=== PATIENT | male | born 1965 | race Caucasian/White ===

== ENCOUNTER 2018-07-05 10:47 | Emergency (ER) | payer MEDICAID, OTHER ==
[2018-07-05] MEDS ORDERED: Sodium Chloride 0.9% 10 ML Syringe FLUSH PRN (11:06)
[2018-07-05] MEDS ORDERED: Albuterol/Ipratropium 3.0-0.5 MG/3 ML Neb Soln NEB ONE (11:06)
[2018-07-05] MEDS ORDERED: Dexamethasone 4 MG/ML SDV IVPUSH ONE (11:06)
--- NOTE | 2018-07-05 11:14 | EDM.PDOC ---
ED HPI GENERAL MEDICAL PROBLEM - General Chief Complaint: Cardiovascular Problem Stated Complaint: SOB CHEST PAIN Time Seen by Provider: 07/05/18 11:09 Source of Information: Reports: Patient History Limitations: Reports: No Limitations - History of Present Illness INITIAL COMMENTS - FREE TEXT/NARRATIVE: Presents with 1 week of cough and sinus pressure. Had a sore throat 3 days prior. Was prescribed zithromax initially which was changed to levaquin because symptoms did not improve. Also completed a course of prednisone yesterday. Complains of persistent symptoms and now exertional chest pain and shortness of breath x 2 days. No prior h/o CAD. Does have a history of asthma. Of note, patient was cleaning out a shed @2 weeks ago and was exposed to rat and mice feces. Duration: Week(s): (1) Location: Reports: Chest Severity: Moderate Context: Reports: Activity Associated Symptoms: Reports: Chest Pain, Cough, Shortness of Breath - Related Data Allergies Allergy/AdvReac Type Severity Reaction Status Date / Time amoxicillin [Amoxicillin] Allergy Anaphylactic Verified 07/05/18 11:10 Shock Penicillins Allergy Hives Verified 07/05/18 11:10 Home Meds: Home Meds Omeprazole 20 mg PO ACBRK 05/16/14 [History] Albuterol [Ventolin HFA] 2 puff INH Q4H PRN #1 inhaler 07/05/18 [Rx] Ascorbic Acid [Vitamin C] 1 tab PO DAILY 07/05/18 [History] predniSONE [Prednisone] See Taper PO DAILY 12 Days #39 tablet 07/05/18 [Rx] Past Medical History Cardiovascular History: Reports: High Cholesterol. Denies: CAD, [place] Respiratory History: Reports: Asthma, Sleep Apnea Gastrointestinal History: Reports: GERD Social & Family History - Tobacco Use Smoking Status *Q: Current Every Day Smoker Tobacco Use Within Last Twelve Months: Cigarettes ED ROS GENERAL - Review of Systems Review Of Systems: See Below Constitutional: Reports: No Symptoms HEENT: Reports: Other (sinus pressure) Respiratory: Reports: Shortness of Breath, Cough Cardiovascular: Reports: Chest Pain, Dyspnea on Exertion Endocrine: Reports: No Symptoms GI/Abdominal: Reports: No Symptoms : Reports: No Symptoms Musculoskeletal: Reports: No Symptoms Skin: Reports: No Symptoms Neurological: Reports: No Symptoms Psychiatric: Reports: No Symptoms Hematologic/Lymphatic: Reports: No Symptoms Immunologic: Reports: No Symptoms ED EXAM, GENERAL - Physical Exam Exam: See Below Exam Limited By: No Limitations General Appearance: Alert, WD/WN, No Apparent Distress Ears: Normal External Exam Nose: Normal Inspection Throat/Mouth: No Airway Compromise Head: Atraumatic, Normocephalic Neck: Supple, Full Range of Motion Respiratory/Chest: No Respiratory Distress, Decreased Breath Sounds, Wheezing Cardiovascular: Regular Rate, Rhythm, No Murmur Back Exam: Full Range of Motion Extremities: Normal Range of Motion, Pedal Edema (trace pitting) Neurological: Alert, Normal Cognition, No Motor/Sensory Deficits Psychiatric: Normal Affect, Normal Mood Skin Exam: Warm, Dry, Intact EKG INTERPRETATION EKG Date: 07/05/18 Time: 11:08 Rhythm: NSR Rate (Beats/Min): 67 [place]: Normal P-Wave: Present QRS: Normal ST-T: Normal QT: Normal Course - Vital Signs Last Recorded V/S: Last Vital Signs Temp 36.8 C 07/05/18 11:00 Pulse 78 07/05/18 13:40 Resp 18 07/05/18 11:00 BP 159/82 H 07/05/18 11:00 Pulse Ox 98 07/05/18 13:40 - Orders/Labs/Meds Orders: Active Orders 24 hr Category Date Time Status CXR [Chest 2V] [CR] Stat Exams 07/05/18 11:03 Taken Chest w Cont [CT] Stat Exams 07/05/18 12:28 Taken CULTURE BLOOD [BC] Urgent Lab 07/05/18 11:35 Received CULTURE BLOOD [BC] Urgent Lab 07/05/18 11:45 Received HANTAVIRUS ANTIBODIES, ALEXEI Routine Lab 07/05/18 11:35 Received Sodium Chloride 0.9% [Saline Flush] Med 07/05/18 11:06 Active 10 ml FLUSH ASDIRECTED PRN Blood Culture x2 Reflex Set [OM.PC] Urgent Oth 07/05/18 11:04 Ordered Saline Lock Insert [OM.PC] Routine Oth 07/05/18 11:06 Ordered EKG 12 Lead [EK] Stat Ther 07/05/18 11:03 Ordered Medication Orders Sodium Chloride (Saline Flush) 10 ml FLUSH ASDIRECTED PRN PRN Reason: Keep Vein Open Last Admin: 07/05/18 11:35 Dose: 10 ml Labs: Laboratory Tests 07/05/18 07/05/1807/05/18 Range/Units 11:35 11:35 11:35 WBC 18.2 H (4.5-12.0) X10-3/uL RBC 5.05 (4.30-5.75) x10(6)uL Hgb 15.4 (11.5-15.5) g/dL Hct 43.6 (30.0-51.3) % MCV 86.4 (80-96) fL MCH 30.5 (27.7-33.6) pg MCHC 35.3 (32.2-35.4) g/dL RDW 12.8 (11.5-15.5) % Plt Count 223 (125-369) X10(3)uL MPV 8.2 (7.4-10.4) fL Add Manual Diff Yes Neutrophils % (Manual) 82 (46-82) % Lymphocytes % (Manual) 14 (13-37) % Monocytes % (Manual) 4 (4-12) % PT 9.7 (8.7-11.1) INR 1.00 (0.89-1.13) D-Dimer, Quantitative (0.0-0.59) mg/LFEU POC VBG pH (7.31-7.41) POC VBG pCO2 (41-51) mmHG POC VBG HCO3 (23-28) mmol/L POC VBG Total CO2 (24-29) mmol/L POC VBG Base Excess (-2-3) mmol/L Sodium 137 (135-145) mmol/L Potassium 3.6 (3.5-5.3) mmol/L Chloride 102 (100-110) mmol/L Carbon Dioxide 26 (21-32) mmol/L BUN 18 (7-18) mg/dL Creatinine 1.0 (0.70-1.30) mg/dL Est Cr Clr Drug Dosing TNP Estimated GFR (MDRD) > 60 (>60) BUN/Creatinine Ratio 18.0 (9-20) Glucose 117 H (80-116) mg/dL Lactic Acid (0.4-2.2) mmol/L Calcium 9.4 (8.6-10.2) mg/dL Total Bilirubin 0.3 (0.1-1.3) mg/dL AST 14 (5-25) IU/L ALT 31 (12-36) U/L Alkaline Phosphatase 54 L (56-112) IU/L Troponin I (<0.017-0.056) ng/mL NT-Pro-B Natriuret Pep (<=125) pg/mL Total Protein 7.4 (6.0-8.0) g/dL Albumin 3.4 L (3.5-5.2) g/dL Globulin 4.0 g/dL Albumin/Globulin Ratio 0.9 07/05/18 07/05/18 07/05/18 Range/Units 11:35 11:35 11:35 WBC (4.5-12.0) X10-3/uL RBC (4.30-5.75) x10(6)uL Hgb (11.5-15.5) g/dL Hct (30.0-51.3) % MCV (80-96) fL MCH (27.7-33.6) pg MCHC (32.2-35.4) g/dL RDW (11.5-15.5) % Plt Count (125-369) X10(3)uL MPV (7.4-10.4) fL Add Manual Diff Neutrophils % (Manual) (46-82) % Lymphocytes % (Manual) (13-37) % Monocytes % (Manual) (4-12) % PT (8.7-11.1) INR (0.89-1.13) D-Dimer, Quantitative 0.34 (0.0-0.59) mg/LFEU POC VBG pH (7.31-7.41) POC VBG pCO2 (41-51) mmHG POC VBG HCO3 (23-28) mmol/L POC VBG Total CO2 (24-29) mmol/L POC VBG Base Excess (-2-3) mmol/L Sodium (135-145) mmol/L Potassium (3.5-5.3) mmol/L Chloride (100-110) mmol/L Carbon Dioxide (21-32) mmol/L BUN (7-18) mg/dL Creatinine (0.70-1.30) mg/dL Est Cr Clr Drug Dosing Estimated GFR (MDRD) (>60) BUN/Creatinine Ratio (9-20) Glucose (80-116) mg/dL Lactic Acid 1.6 (0.4-2.2) mmol/L Calcium (8.6-10.2) mg/dL Total Bilirubin (0.1-1.3) mg/dL AST (5-25) IU/L ALT (12-36) U/L Alkaline Phosphatase (56-112) IU/L Troponin I < 0.017 L (<0.017-0.056) ng/mL NT-Pro-B Natriuret Pep 160 H (<=125) pg/mL Total Protein (6.0-8.0) g/dL Albumin (3.5-5.2) g/dL Globulin g/dL Albumin/Globulin Ratio 07/05/18 07/05/18 Range/Units 11:35 14:30 WBC (4.5-12.0) X10-3/uL RBC (4.30-5.75) x10(6)uL Hgb (11.5-15.5) g/dL Hct (30.0-51.3) % MCV (80-96) fL MCH (27.7-33.6) pg MCHC (32.2-35.4) g/dL RDW (11.5-15.5) % Plt Count (125-369) X10(3)uL MPV (7.4-10.4) fL Add Manual Diff Neutrophils % (Manual) (46-82) % Lymphocytes % (Manual) (13-37) % Monocytes % (Manual) (4-12) % PT (8.7-11.1) INR (0.89-1.13) D-Dimer, Quantitative (0.0-0.59) mg/LFEU POC VBG pH 7.45 H (7.31-7.41) POC VBG pCO2 38.6 L (41-51) mmHG POC VBG HCO3 26.8 (23-28) mmol/L POC VBG Total CO2 28 (24-29) mmol/L POC VBG Base Excess 3 (-2-3) mmol/L Sodium (135-145) mmol/L Potassium (3.5-5.3) mmol/L Chloride (100-110) mmol/L Carbon Dioxide (21-32) mmol/L BUN (7-18) mg/dL Creatinine (0.70-1.30) mg/dL Est Cr Clr Drug Dosing Estimated GFR (MDRD) (>60) BUN/Creatinine Ratio (9-20) Glucose (80-116) mg/dL Lactic Acid (0.4-2.2) mmol/L Calcium (8.6-10.2) mg/dL Total Bilirubin (0.1-1.3) mg/dL AST (5-25) IU/L ALT (12-36) U/L Alkaline Phosphatase (56-112) IU/L Troponin I < 0.017 L (<0.017-0.056) ng/mL NT-Pro-B Natriuret Pep (<=125) pg/mL Total Protein (6.0-8.0) g/dL Albumin (3.5-5.2) g/dL Globulin g/dL Albumin/Globulin Ratio Meds: Medications Generic Name Dose Route Start Last Admin Trade Name Freq PRN Reason Stop Dose Admin Sodium Chloride 10 ml 07/05/18 11:06 07/05/18 11:35 Saline Flush FLUSH 10 ml ASDIRECTED PRN Administration Keep Vein Open Discontinued Medications Generic Name Dose Route Start Last Admin Trade Name Freq PRN Reason Stop Dose Admin Albuterol 2.5 mg 07/05/18 13:11 07/05/18 13:20 Proventil Neb Soln NEB 07/05/18 13:12 2.5 mg ONETIME ONE Administration Albuterol/Ipratropium 3 ml 07/05/18 11:06 07/05/18 11:16 Duoneb 3.0-0.5 Mg/3 Ml NEB 07/05/18 11:07 3 ml ONETIME ONE Administration Dexamethasone 10 mg 07/05/18 11:06 07/05/18 11:35 Dexamethasone IVPUSH 07/05/18 11:07 10 mg ONETIME ONE Administration Magnesium Sulfate 2 gm/ Premix 50 mls @ 150 mls/hr 07/05/18 13:11 07/05/18 13 :29 IV 07/05/18 13:30 150 mls/hr ONETIME ONE Administration Iopamidol 100 ml 07/05/18 12:54 07/05/18 13:05 Isovue-370 (76%) IV 07/05/18 12:55 81 ml . DIRECTED ONE Administration - Radiology Interpretation Free Text/Narrative:: CXR: NAD CT Chest w/ IV contrast: No acute intrathoracic abnormalities. - Re-Assessments/Exams Free Text/Narrative Re-Assessment/Exam: 07/05/18 14:54 Symptoms improved. Aeration has significantly improved, still slight expiratory wheeze on re-examination. Departure - Departure Time of Disposition: 14:57 Disposition: Home, Self-Care 01 Condition: Good Clinical Impression: Asthma exacerbation Qualifiers: Asthma severity: moderate Asthma persistence: persistent Qualified Code(s): J45.41 - Moderate persistent asthma with (acute) exacerbation Prescriptions: Albuterol [Ventolin HFA] 2 puff INH Q4H PRN #1 inhaler PRN Reason: Shortness Of Breath predniSONE [Prednisone] See Taper PO DAILY 12 Days #39 tablet Instructions: How to Use a Metered Dose Inhaler, Asthma, Adult, [id number] Referrals: Serafin Max MD [Primary Care Provider] - Forms: ED Department Discharge Additional Instructions: Fill prescriptions for Albuterol and Prednisone and take as directed. Follow up with your primary physician in 2-3 days. Return to the ER if symptoms worsen. - My Orders Last 24 Hours: My Active Orders 07/05/18 11:03 CXR [Chest 2V] [CR] Stat EKG 12 Lead [EK] Stat 07/05/18 11:04 Blood Culture x2 Reflex Set [OM.PC] Urgent 07/05/18 11:06 Sodium Chloride 0.9% [Saline Flush] 10 ml FLUSH ASDIRECTED PRN Saline Lock Insert [OM.PC] Routine 07/05/18 11:35 CULTURE BLOOD [BC] Urgent HANTAVIRUS ANTIBODIES, ALEXEI Routine 07/05/18 11:45 CULTURE BLOOD [BC] Urgent 07/05/18 12:28 Chest w Cont [CT] Stat - Assessment/Plan Last 24 Hours: My Active Orders 07/05/18 11:03 CXR [Chest 2V] [CR] Stat EKG 12 Lead [EK] Stat 07/05/18 11:04 Blood Culture x2 Reflex Set [OM.PC] Urgent 07/05/18 11:06 Sodium Chloride 0.9% [Saline Flush] 10 ml FLUSH ASDIRECTED PRN Saline Lock Insert [OM.PC] Routine 07/05/18 11:35 CULTURE BLOOD [BC] Urgent HANTAVIRUS ANTIBODIES, ALEXEI Routine 07/05/18 11:45 CULTURE BLOOD [BC] Urgent 07/05/18 12:28 Chest w Cont [CT] Stat
[2018-07-05] MEDS ORDERED: Iopamidol 755 Mg/ML 100 ML Bottle IV ONE (12:54)
[2018-07-05] MEDS ORDERED: Magnesium Sulfate/Water 2 GM in Premix Bag 1 BAG IV ONE (13:11)
[2018-07-05] MEDS ORDERED: Albuterol 0.083% 2.5 MG/3 ML Neb Soln NEB ONE (13:11)
[2018-07-05 15:01] VITALS: BP 132/73
--- NOTE | 2018-07-06 09:43 | CR ---
INDICATION: Cough. Chest pain. CHEST, PA AND LATERAL VIEWS: FINDINGS: By x-ray, the lungs are clear. There is a benign appearing nodule in the anterior aspect of the right upper lung on a subsequently CT scan chest. By x-ray, the cardiac and mediastinal contours look normal. There is no CHF. The patient is of larger body habitus. There is some degenerative end plate change and spurring that is identified throughout the thoracic spine. IMPRESSION: There is a circumscribed nodule that is identified anteriorly within the right upper lobe, better demonstrated on a subsequent CT scan chest. This nodule is felt to be benign. There is otherwise no acute pneumonia or CHF. MTDD
== END 2018-07-05 15:14 | disposition home or self-care (01) ==
LOC: FB.ED 10:47
DX: J45.41 Moderate persistent asthma with (acute) exacerbation (principal); Z88.0 Allergy status to penicillin; Z88.1 Allergy status to other antibiotic agents; F17.210 Nicotine dependence, cigarettes, uncomplicated
CPT/HCPCS: 36415; 71046; 71260; 80053; 82803; 83605; 83880; 84484; 85025; 85379; 85610; 86790; 87040; 87804; 93005; 94640; 96365; 96375; 99285; J1100; J3475; J7050; Q9967; 99284; J7620-GY

== ENCOUNTER 2018-11-10 19:18 | Emergency (ER) | payer BC, OTHER ==
[2018-11-10] MEDS ORDERED: traMADol 50 MG Tab PO ONE (19:19)
[2018-11-10] MEDS ORDERED: Ketorolac 60 MG/2 ML SDV IM ONE (20:51)
--- NOTE | 2018-11-10 21:07 | EDM.PDOC ---
ED HPI GENERAL MEDICAL PROBLEM - General Chief Complaint: Lower Extremity Injury/Pain Stated Complaint: LEFT THIGH PAIN Time Seen by Provider: 11/10/18 20:20 Source of Information: Reports: Patient History Limitations: Reports: No Limitations - History of Present Illness INITIAL COMMENTS - FREE TEXT/NARRATIVE: c/o L hamstring pain pt has dogs by a child gate so that they can eat separately, as he was stepping over the gate his L foot caught on the gate, he did the splits with legs going in opposite directions, the gate fell to the floor, he felt a rip in his mid thigh posteriorly with pain radiating into his pelvis he comes to ED on crutches did not take meds at home is a student, not working Left thigh Pain Score (Numeric/FACES): 10 - Related Data Allergies Allergy/AdvReac Type Severity Reaction Status Date / Time amoxicillin [Amoxicillin] Allergy Anaphylactic Verified 11/10/18 19:31 Shock Penicillins Allergy Hives Verified 11/10/18 19:31 Home Meds: Home Meds Omeprazole 20 mg PO BEDTIME 05/16/14 [History] Albuterol [Ventolin HFA] 2 puff INH Q4H PRN #1 inhaler 07/05/18 [Rx] Past Medical History Cardiovascular History: Reports: High Cholesterol Respiratory History: Reports: Asthma, Sleep Apnea Gastrointestinal History: Reports: GERD Endocrine/Metabolic History: Reports: Other (See Below) Other Endocrine/Metabolic History: stated panc. malfunctioned a few years ago but is not working well Social & Family History - Family History Family Medical History: Noncontributory - Tobacco Use Smoking Status *Q: Current Every Day Smoker Years of Tobacco use: 40 Packs/Tins Daily: 1 Used Tobacco, but Quit: No - Caffeine Use Caffeine Use: Reports: Coffee, Energy Drinks, Soda - Recreational Drug Use Recreational Drug Use: No Review of Systems - Review of Systems Review Of Systems: See Below Constitutional: Reports: No Symptoms Eyes: Reports: No Symptoms Ears: Reports: No Symptoms Nose: Reports: No Symptoms Mouth/Throat: Reports: No Symptoms Respiratory: Reports: No Symptoms Cardiovascular: Reports: No Symptoms GI/Abdominal: Reports: No Symptoms Genitourinary: Reports: No Symptoms Musculoskeletal: Reports: Leg Pain Skin: Reports: No Symptoms Neurological: Reports: No Symptoms Psychiatric: Reports: No Symptoms ED EXAM, GENERAL - Physical Exam Exam: See Below Exam Limited By: No Limitations General Appearance: Alert, WD/WN, Mild Distress Back Exam: Normal Inspection, Other (L spine NT). No: Muscle Spasm Extremities: Other (lying supine and a little towards the R side which he says is the most comfortable position, he was able to roll further to the R without difficulty to allow exam of the posterior pelvis, does have 1-2+ tender over the posterior mid thigh without spasm with tenderness extending up to the insertion of the hamstring on the posterior pelvis, minimal tender along inguinal line, NT at L greater trochanter and L SI joint ) Neurological: Alert, Oriented, No Motor/Sensory Deficits Psychiatric: Normal Affect, Normal Mood Skin Exam: Warm, Dry, Intact, Normal Color, No Rash Lymphatic: No Adenopathy Course - Vital Signs Last Recorded V/S: Last Vital Signs Temp 36.8 C 11/10/18 21:19 Pulse 77 11/10/18 21:19 Resp 18 11/10/18 21:19 BP 143/66 H 11/10/18 21:19 Pulse Ox 97 11/10/18 21:19 - Orders/Labs/Meds Orders: Active Orders 24 hr Category Date Time Status Pelvis 1V or 2V [CR] Stat Exams 11/10/18 20:51 Taken Meds: Medications Discontinued Medications Generic Name Dose Route Start Last Admin Trade Name Erika PRN Reason Stop Dose Admin Ketorolac Tromethamine 60 mg 11/10/18 20:51 11/10/18 20:57 Toradol IM 11/10/18 20:52 60 mg ONETIME ONE Administration - Re-Assessments/Exams Free Text/Narrative Re-Assessment/Exam: 11/10/18 21:55 XR pelvis 1v with no chip fx pt with c/o spasm if he turns the wrong way has classes at [employer] tomorrow and in 5d, did not think he would be able to drive, wants a note given a new set of crutches agrees to follow d/c instructions, including using ice Departure - Departure Time of Disposition: 21:56 Disposition: DC[facility] 05 Condition: Good Clinical Impression: Hamstring muscle strain Qualifiers: Laterality: left Hamstring tendon rupture Qualifiers: Laterality: left - Discharge Information *PRESCRIPTION DRUG MONITORING PROGRAM REVIEWED*: Not Applicable *COPY OF PRESCRIPTION DRUG MONITORING REPORT IN PATIENT WOOD: Not Applicable Instructions: Hamstring Strain Referrals: Serafin Max MD [Primary Care Provider] - Forms: ED Department Discharge, ED Return to Work/School Form Additional Instructions: For pain and inflammation, take ibuprofen 200 mg 4 tabs and acetaminophen 500 mg 2 tabs 3 times a day for 2 weeks, longer if needed. For pain, take tramadol 50 mg 1 tab every 6-8 hours as needed. No alcohol. Use ice for 15 minutes 4 times a day for 2 days, then switch to heat. Use crutches when out of bed until cleared by your physician. See your in 2 days if not feeling better. Otherwise, see your physician in 5 days. Avoid falling or reinjury. - My Orders Last 24 Hours: My Active Orders 11/10/18 20:51 Pelvis 1V or 2V [CR] Stat - Assessment/Plan Last 24 Hours: My Active Orders 11/10/18 20:51 Pelvis 1V or 2V [CR] Stat
[2018-11-10 21:25] VITALS: BP 143/66
--- NOTE | 2018-11-12 07:54 | CR ---
INDICATION: Tripped over baby gait. Did leg splits and felt a pop. Ruptured hamstring, question avulsion chip fracture fragment. PELVIS ONE VIEW: There is a clip in the right lower quadrant which could be on the basis of appendectomy. Bone density of the pelvis and femurs appear to be normal without a definite fracture, dislocation, or other definite bone or joint abnormality. There is a small spur off the lesser trochanteric area on the right, which likely is due to a tug lesion and likely is not acute. Sacroiliac joints appear to be intact. IMPRESSION: No definite acute fracture or dislocation. MTDD
== END 2018-11-10 22:18 | disposition home or self-care (01) ==
LOC: FB.ED 19:18
DX: S76.312A Strain of muscle, fascia and tendon of the posterior muscle group at thigh level, left thigh, initial encounter (principal); J45.909 Unspecified asthma, uncomplicated; K21.9 Gastro-esophageal reflux disease without esophagitis; F17.210 Nicotine dependence, cigarettes, uncomplicated; W23.0XXA Caught, crushed, jammed, or pinched between moving objects, initial encounter; Z88.0 Allergy status to penicillin; Z79.899 Other long term (current) drug therapy; Z88.1 Allergy status to other antibiotic agents
CPT/HCPCS: 72170; 96372; 99283; J1885; A9270-GY

== ENCOUNTER 2022-09-27 21:16 | Emergency (ER) | payer SELFPAY ==
[2022-09-27] MEDS ORDERED: Acetaminophen/oxyCODONE 325-5 MG Tab PO ONE (21:17)
[2022-09-27] MEDS ORDERED: Sodium Chloride 0.9% 10 ML Syringe FLUSH PRN (22:23)
[2022-09-27] MEDS ORDERED: Sodium Chloride 0.9% 1,000 ML IV ONE (22:23)
[2022-09-27] MEDS ORDERED: Ondansetron 4 MG/2 ML SDV IVPUSH ONE (22:23)
[2022-09-27] MEDS ORDERED: Morphine 4 MG/ML VIAL IVPUSH ONE (22:23)
[2022-09-27 22:57] LABS: ESTIMATED GFR 89 mL/min (>60)
[2022-09-27] MEDS ORDERED: Iopamidol 755 Mg/ML 100 ML Bottle IV ONE (23:13)
[2022-09-28] MEDS ORDERED: HYDROmorphone 2 MG/ML SDV IVPUSH ONE (00:05)
[2022-09-28 02:05] VITALS: BP 149/86; PULSE 62
== END 2022-09-28 01:30 | disposition home or self-care (01) ==
LOC: FB.ED 21:16
DX: R10.9 Unspecified abdominal pain (principal); M54.6 Pain in thoracic spine; E78.00 Pure hypercholesterolemia, unspecified; K21.9 Gastro-esophageal reflux disease without esophagitis; F17.210 Nicotine dependence, cigarettes, uncomplicated; Z88.0 Allergy status to penicillin; Z88.5 Allergy status to narcotic agent; Z79.899 Other long term (current) drug therapy
CPT/HCPCS: 36415; 71275; 74177; 80053; 81001; 83690; 83735; 84484; 85025; 85379; 86140; 93005; 96361; 96374; 96375; 99284; A9270; J1170; J2270; J2405; J3490; J7030; Q9967

== ENCOUNTER 2024-01-22 22:30 | Emergency (ER) | payer SELFPAY ==
[2024-01-22 22:54] VITALS: BP 177/64; PULSE 78
[2024-01-22] MEDS: Ketorolac 30 MG/ML SDV IM ONE (23:12)
[2024-01-22] MEDS: Ondansetron 4 MG Tab.DIS PO ONE (23:48)
[2024-01-22] MEDS: Acetaminophen/oxyCODONE 325-5 MG Tab PO STA (23:48)
== END 2024-01-23 00:15 | disposition home or self-care (01) ==
LOC: FB.ED 22:30
DX: S20.212A Contusion of left front wall of thorax, initial encounter (principal); J20.9 Acute bronchitis, unspecified; J45.909 Unspecified asthma, uncomplicated; E78.00 Pure hypercholesterolemia, unspecified; K21.9 Gastro-esophageal reflux disease without esophagitis; Z88.1 Allergy status to other antibiotic agents; Z88.0 Allergy status to penicillin; Z88.6 Allergy status to analgesic agent; Z79.899 Other long term (current) drug therapy; Z79.51 Long term (current) use of inhaled steroids; X50.1XXA Overexertion from prolonged static or awkward postures, initial encounter
CPT/HCPCS: 71101; 96372; 99283; A9270; J1885; Q0162

== ENCOUNTER 2024-06-21 05:39 | Emergency (ER) | payer OTHER ==
[2024-06-21 05:58] LABS: BASOPHILS ABSOLUTE AUTO 0.1 x10-3/uL (0.0-0.3); BASOPHILS PERCENT AUTO 0.7 % (0.3-3.8); EOSINOPHILS ABSOLUTE AUTO 0.3 x10-3/uL (0.0-0.6); EOSINOPHILS PERCENT AUTO 2.9 % (0.1-6.8); HEMATOCRIT 38.7 % (38.3-50.1); LYMPHOCYTES ABSOLUTE AUTO 1.8 x10-3/uL (0.5-4.5); LYMPHOCYTES PERCENT AUTO 18.7 % (15.8-45.3); MEAN CORPUSCULAR HEMOGLOBIN 29.8 pg (27.0-33.3); MEAN CORPUSCULAR HGB CONC 33.5 g/dL (28.7-35.3); MEAN CORPUSCULAR VOLUME 88.9 fL (80.8-98.7); MEAN PLATELET VOLUME 7.2 fL (6.7-11.0); MONOCYTES ABSOLUTE AUTO 0.8 x10-3/uL (0.0-1.2); MONOCYTES PERCENT AUTO 8.1 % (5.5-15.2); NEUTROPHILS ABSOLUTE AUTO 6.6 x10-3/uL (1.7-6.9); NEUTROPHILS PERCENT AUTO 69.6 % (40.3-71.8); PLATELET COUNT,PLT 244 x10(3)uL (117-477); RED BLOOD CELL COUNT 4.36 x10(6)uL (3.90-5.90); RED CELL DISTRIBUTION WIDTH 14.1 % (12.4-15.0); WHITE BLOOD CELL COUNT,WBC 9.4 x10-3/uL (3.2-10.1)
[2024-06-21 06:06] LABS: BLOOD UREA NITROGEN,BUN 25 mg/dL (7-18); BUN/CREATININE RATIO 17.9 (9-20); CALCIUM 8.6 mg/dL (8.6-10.2); CARBON DIOXIDE,CO2 29 mmol/L (21-32); CHLORIDE,CL 105 mmol/L (100-110); CREATININE 1.4 mg/dL (0.70-1.30); ESTIMATED GFR 59 mL/min (>60); GLUCOSE RANDOM 107 mg/dL (80-116); SODIUM,NA 142 mmol/L (135-145)
[2024-06-21 06:17] LABS: ALANINE AMINOTRANSFERASE,ALT 30 U/L (12-36); ALBUMIN 3.5 g/dL (3.5-5.2); ALKALINE PHOSPHATASE 52 IU/L (56-112); ASPARTATE AMNIOTRANSFERASE,AST 23 IU/L (5-25); BILIRUBIN TOTAL 0.2 mg/dL (0.1-1.3)
[2024-06-21] MEDS: Metoprolol Tartrate 5 MG/5 ML SDV IVPUSH ONE (06:30)
[2024-06-21] MEDS: Clopidogrel 75 MG Tab PO ONE (06:30)
[2024-06-21] MEDS: Aspirin 325 MG Tab.EC PO ONE (06:30)
[2024-06-21 06:31] VITALS: BP 165/70; PULSE 64
[2024-06-21] MEDS ORDERED: Heparin Sodium 5,000 Units/ML Vial IVPUSH ONE (06:42)
[2024-06-21] MEDS ORDERED: Heparin Sodium/0.45% NaCl 25,000 UNITS/500 ML BAG IV SCH (06:45)
[2024-06-21] MEDS: Heparin Sodium/0.45% NaCl 25,000 UNITS/500 ML BAG IV SCH (07:06)
[2024-06-21] MEDS: Heparin Sodium 5,000 Units/ML Vial IVPUSH ONE (07:06)
== END 2024-06-21 07:28 ==
LOC: FB.ED 05:39
DX: I21.4 Non-ST elevation (NSTEMI) myocardial infarction (principal); I10 Essential (primary) hypertension; E78.00 Pure hypercholesterolemia, unspecified; J45.909 Unspecified asthma, uncomplicated; F17.210 Nicotine dependence, cigarettes, uncomplicated; Z90.49 Acquired absence of other specified parts of digestive tract; Z79.899 Other long term (current) drug therapy; Z79.84 Long term (current) use of oral hypoglycemic drugs; Z88.0 Allergy status to penicillin; Z88.8 Allergy status to other drugs, medicaments and biological substances
CPT/HCPCS: 36415; 71045; 80053; 84484; 85025; 85379; 86140; 93005; 93010; 96365; 96375; 99285; 99285-25; A9270-GY; J1644; J3490

== ENCOUNTER 2025-06-24 17:13 | Emergency (ER) | payer BC, OTHER ==
[2025-06-24] MEDS ORDERED: Acetaminophen/HYDROcodone 325-5 MG Tab PO ONE (17:14)
[2025-06-24 17:52] LABS: GLUCOSE,URINE NORMAL (NORMAL); OCCULT BLOOD,URINE NEGATIVE (NEGATIVE)
[2025-06-24 18:22] LABS: BASOPHILS ABSOLUTE AUTO 0.1 x10-3/uL (0.0-0.3); BASOPHILS PERCENT AUTO 0.8 % (0.3-3.8); EOSINOPHILS ABSOLUTE AUTO 0.3 x10-3/uL (0.0-0.6); EOSINOPHILS PERCENT AUTO 3.1 % (0.1-6.8); LYMPHOCYTES ABSOLUTE AUTO 1.6 x10-3/uL (0.5-4.5); LYMPHOCYTES PERCENT AUTO 15.0 % (15.8-45.3); MEAN PLATELET VOLUME 7.5 fL (6.7-11.0); MONOCYTES ABSOLUTE AUTO 0.8 x10-3/uL (0.0-1.2); MONOCYTES PERCENT AUTO 7.9 % (5.5-15.2); NEUTROPHILS ABSOLUTE AUTO 7.8 x10-3/uL (1.7-6.9); NEUTROPHILS PERCENT AUTO 73.2 % (40.3-71.8); PLATELET COUNT,PLT 235 x10(3)uL (117-477); RED BLOOD CELL COUNT 4.04 x10(6)uL (3.90-5.90); RED CELL DISTRIBUTION WIDTH 14.3 % (12.4-15.0); WHITE BLOOD CELL COUNT,WBC 10.6 x10-3/uL (3.2-10.1)
[2025-06-24 18:27] LABS: BLOOD UREA NITROGEN,BUN 12 mg/dL (7-18); CARBON DIOXIDE,CO2 27 mmol/L (21-32); CHLORIDE,CL 102 mmol/L (100-110); CREATININE 1.1 mg/dL (0.70-1.30); ESTIMATED GFR 78 mL/min (>60); GLUCOSE RANDOM 96 mg/dL (80-116); POTASSIUM,K 4.4 mmol/L (3.5-5.3); SODIUM,NA 138 mmol/L (135-145)
[2025-06-24 18:33] LABS: A/G RATIO 1.0; ALANINE AMINOTRANSFERASE,ALT 36 U/L (12-36); ASPARTATE AMNIOTRANSFERASE,AST 32 IU/L (5-25); BILIRUBIN TOTAL 0.3 mg/dL (0.1-1.3); PROTEIN TOTAL,TP 7.0 g/dL (6.0-8.0)
[2025-06-24] MEDS: HYDROmorphone 2 MG/ML SDV IVPUSH ONE (18:33)
[2025-06-24] MEDS: Iopamidol 755 Mg/ML 100 ML Bottle IV SCH (18:33)
[2025-06-24] MEDS: Ondansetron 4 MG/2 ML SDV IVPUSH ONE (18:34)
[2025-06-24 19:08] LABS: APPEARANCE,URINE CLEAR (CLEAR)
[2025-06-24 19:09] LABS: SQUAMOUS EPITHELIAL CELLS,UR OCCASIONAL (NS,R,O)
[2025-06-24 19:46] VITALS: BP 141/76; PULSE 69
== END 2025-06-24 20:18 | disposition home or self-care (01) ==
LOC: FB.ED 17:13
DX: R10.11 Right upper quadrant pain (principal); R19.7 Diarrhea, unspecified; E78.00 Pure hypercholesterolemia, unspecified; J45.909 Unspecified asthma, uncomplicated; K21.9 Gastro-esophageal reflux disease without esophagitis; Z88.0 Allergy status to penicillin; Z88.5 Allergy status to narcotic agent; Z79.899 Other long term (current) drug therapy; Z79.84 Long term (current) use of oral hypoglycemic drugs
CPT/HCPCS: 74177; 80053; 81001; 83605; 83690; 85025; 96361; 96374; 96375; 99284; A9270; J1171; J2405; J7030; Q9967

== ENCOUNTER 2025-07-25 21:04 | Emergency (ER) | payer OTHER ==
[2025-07-25] MEDS ORDERED: Acetaminophen/HYDROcodone 325-5 MG Tab PO ONE (21:05)
[2025-07-25 23:39] LABS: BASOPHILS ABSOLUTE AUTO 0.1 x10-3/uL (0.0-0.3); BASOPHILS PERCENT AUTO 0.6 % (0.3-3.8); EOSINOPHILS ABSOLUTE AUTO 0.2 x10-3/uL (0.0-0.6); EOSINOPHILS PERCENT AUTO 2.5 % (0.1-6.8); LYMPHOCYTES ABSOLUTE AUTO 1.8 x10-3/uL (0.5-4.5); LYMPHOCYTES PERCENT AUTO 17.7 % (15.8-45.3); MEAN PLATELET VOLUME 7.5 fL (6.7-11.0); MONOCYTES ABSOLUTE AUTO 0.9 x10-3/uL (0.0-1.2); MONOCYTES PERCENT AUTO 8.7 % (5.5-15.2); NEUTROPHILS ABSOLUTE AUTO 7.0 x10-3/uL (1.7-6.9); NEUTROPHILS PERCENT AUTO 70.5 % (40.3-71.8); PLATELET COUNT,PLT 224 x10(3)uL (117-477); RED BLOOD CELL COUNT 4.25 x10(6)uL (3.90-5.90); RED CELL DISTRIBUTION WIDTH 14.5 % (12.4-15.0); WHITE BLOOD CELL COUNT,WBC 9.9 x10-3/uL (3.2-10.1)
[2025-07-25 23:43] LABS: BLOOD UREA NITROGEN,BUN 15 mg/dL (7-18); CARBON DIOXIDE,CO2 29 mmol/L (21-32); CHLORIDE,CL 102 mmol/L (100-110); CREATININE 1.0 mg/dL (0.70-1.30); EST CRCL DRUG DOSING (CG) 78.85 mL/min; ESTIMATED GFR 88 mL/min (>60); GLUCOSE RANDOM 92 mg/dL (80-116); POTASSIUM,K 4.4 mmol/L (3.5-5.3); SODIUM,NA 139 mmol/L (135-145)
[2025-07-25 23:49] LABS: A/G RATIO 0.9; ALANINE AMINOTRANSFERASE,ALT 32 U/L (12-36); ASPARTATE AMNIOTRANSFERASE,AST 25 IU/L (5-25); BILIRUBIN TOTAL 0.2 mg/dL (0.1-1.3); PROTEIN TOTAL,TP 7.2 g/dL (6.0-8.0)
[2025-07-25 23:53] LABS: LACTIC ACID 0.7 mmol/L (0.4-2.0)
[2025-07-26] MEDS: Alum Hydroxide/Mag Hydroxide 15 ML, Lidocaine 2% 15 ML PO ONE (00:38)
[2025-07-26] MEDS: Acetaminophen/HYDROcodone 325-7.5 MG Tab PO PRN (01:30)
[2025-07-26 02:41] VITALS: BP 161/59; PULSE 65
== END 2025-07-26 02:44 | disposition home or self-care (01) ==
LOC: FB.ED 21:04
DX: R10.13 Epigastric pain (principal); I10 Essential (primary) hypertension; E78.00 Pure hypercholesterolemia, unspecified; I25.2 Old myocardial infarction; K21.9 Gastro-esophageal reflux disease without esophagitis; J45.909 Unspecified asthma, uncomplicated; E11.9 Type 2 diabetes mellitus without complications; F17.200 Nicotine dependence, unspecified, uncomplicated; Z90.49 Acquired absence of other specified parts of digestive tract; Z88.0 Allergy status to penicillin; Z88.5 Allergy status to narcotic agent; Z79.84 Long term (current) use of oral hypoglycemic drugs; Z79.899 Other long term (current) drug therapy
CPT/HCPCS: 80053; 83605; 83690; 84145; 85025; 93005; 99284; A9270; 36415; 93010